=== PATIENT | male | born 1950 | race Caucasian/White ===

== ENCOUNTER 2020-06-14 12:15 | Emergency (ER) | payer OTHER ==
[~2020-06-14] VITALS: Ht 180.3 cm; Wt 81.7 kg
[2020-06-14] MEDS ORDERED: LIDOCAINE VISC100 ML SWISH&SPIT (13:43)
[2020-06-14] MEDS ORDERED: AMOXIL 875 MG875 M1 PO (13:43)
[2020-06-14] MEDS ORDERED: HYDROCODON-ACE1 EAC7 PO (13:43)
[2020-06-14 13:50] VITALS: BP 164/82
== END 2020-06-14 13:50 | disposition home or self-care (01) ==
LOC: M.ERS 12:15
DX: K04.7 Periapical abscess without sinus (principal); Z88.5 Allergy status to narcotic agent

== ENCOUNTER 2020-06-20 11:19 | Emergency (ER) | payer OTHER ==
[~2020-06-20] VITALS: Ht 180.3 cm; Wt 81.7 kg
[~2020-06-20 11:19] MED LIST: AMOXIL 875 MG875 M1 PO; HYDROCODON-ACE1 EAC7 PO; LIDOCAINE VISC100 ML SWISH&SPIT
[2020-06-20 11:50] LABS: RDW-CV 14.6 % (10.5-14.5)
[2020-06-20 11:52] LABS: ABSOLUTE BASOPHILS 0.1 thou/uL (0.0-0.2); ABSOLUTE EOSINOPHILS 0.1 thou/uL (0.0-0.7); ABSOLUTE LYMPHOCYTES 1.7 thou/uL (0.8-5.3); BASOPHILS 0.7 %; EOSINOPHILS 0.8 %; HEMATOCRIT 45.1 % (42.0-52.0); LYMPHOCYTES 13.2 %; MCH 27.5 pg (26.0-34.0); MCHC 33.3 g/dL (28.0-37.0); MCV 82.6 fL (80.0-100.0); MONOCYTES 8.1 %; MPV 7.9 fl. (7.2-11.1); NUCLEATED RBCS 0 /100WBC; PLATELET COUNT* 262 thou/uL (150-400); POLYS 77.2 %; RBC 5.46 mil/uL (4.50-6.00)
[2020-06-20 12:00] LABS: CALCIUM 8.6 mg/dL (8.5-10.1); CREATININE 0.9 mg/dL (0.6-1.3); POTASSIUM 4.8 mmol/L (3.5-5.1)
[2020-06-20 12:04] LABS: ALBUMIN 3.6 g/dL (3.4-5.0); TOTAL BILIRUBIN 0.5 mg/dL (<0.1-1.0); TOTAL PROTEIN 7.6 g/dL (6.4-8.2)
[2020-06-20 12:37] LABS: URINE BILIRUBIN NEGATIVE (Negative); URINE BLOOD 1+ (Negative); URINE CLARITY CLEAR; URINE COLOR YELLOW; URINE GLUCOSE-RANDOM NEGATIVE (Negative); URINE KETONES NEGATIVE (Negative); URINE LEUKOCYTES-REFLEX NEGATIVE (Negative); URINE NITRITE-REFLEX NEGATIVE (Negative); URINE PROTEIN NEGATIVE (Negative); URINE UROBILINOGEN 0.2 E.U./dl (0.2-1.0)
[2020-06-20 12:43] LABS: SQUAMOUS NONE SEEN /LPF (0-3)
[2020-06-20 12:44] LABS: CASTS None Seen /LPF (None Seen); CRYSTALS None Seen /LPF (None Seen); MUCUS 0-3 Light strn/LPF (None Seen); URINE RBC 0-2 Rare /HPF (0-2); URINE WBC-REFLEX None Seen /HPF (0-5)
[2020-06-20] MEDS ORDERED: DOXYCYCLINE 10100 MG PO (13:05)
[2020-06-20] MEDS ORDERED: NABUMETONE 750750 M1 PO (13:05)
[2020-06-20] MEDS ORDERED: VENTOLIN HFA 1818 GM INH (13:05)
[2020-06-20] MEDS ORDERED: ZANAFLEX4 MG PO (13:05)
[2020-06-20 13:20] VITALS: BP 162/72
== END 2020-06-20 13:22 | disposition home or self-care (01) ==
LOC: M.ERS 11:19
PROVIDERS: Family Medicine
DX: J18.1 Lobar pneumonia, unspecified organism (principal); M54.5 Low back pain; Z88.5 Allergy status to narcotic agent